=== PATIENT | female | born 1970 | race Caucasian/White ===

== ENCOUNTER 2017-09-10 08:45 | Emergency (ER) | payer BC ==
[~2017-09-10] VITALS: Ht 170.2 cm; Wt 83.5 kg
[~2017-09-10 08:45] MED LIST: AZITHROMYCIN 2250 MG PO; MECLIZINE 25 MG25 M1 PO; NAPROSYN500 MG PO; NOHOMEMEDICATIONS; PERCOCET 5-3251 EACH PO; PREDNISONE 20 M20 MG PO; PROTONIX40 MG PO; TRAMADOL 50 MG50 MG PO
[2017-09-10 08:48] VITALS: BP 175/97
[2017-09-10] MEDS ORDERED: NORVASC5 MG PO (08:52)
[2017-09-10] MEDS ORDERED: LISINOPRIL10 MG PO (08:52)
[2017-09-10] MEDS ORDERED: NORCO 5-325 TA1 EACH PO (09:08)
== END 2017-09-10 09:48 | disposition home or self-care (01) ==
LOC: ER 08:45
DX: S33.5XXA Sprain of ligaments of lumbar spine, initial encounter (principal); M79.605 Pain in left leg; I10 Essential (primary) hypertension; X50.0XXA Overexertion from strenuous movement or load, initial encounter; Y92.89 Other specified places as the place of occurrence of the external cause; Y93.89 Activity, other specified; Y99.8 Other external cause status